=== PATIENT | female | born 1945 | race Caucasian/White ===

== ENCOUNTER 2016-12-27 17:00 | Inpatient (IN) | payer MEDICARE, BC ==
[~2016-12-27] VITALS: Ht 170.2 cm; Wt 79.2 kg
--- NOTE | ~2016-12-27 | DS ---
PATIENT'S NAME: PATRICIA CARBONE [facility] AGE: 71 Y [address] ROOM: [address] [address] LOCATION: [facility] [place] ADMIT DATE: 12/27/2016 Discharge Summary DISCHARGE DATE: 01/09/2017 FAMILY PHYSICIAN: Carmine Luna MD ATTENDING PHYSICIAN: Lucy Monson PRIMARY DIAGNOSES: 1. Anemia, acute on chronic lower gastrointestinal blood loss. 2. Superior mesenteric vein thrombosis. 3. Iron deficiency. 4. Stage IV colon cancer with liver metastases. 5. Essential hypertension. 6. Gastroesophageal reflux disease. 7. Osteoarthritis, generalized. 8. Moderate protein-calorie malnutrition. 9. Seasonal allergies. OPERATIONS OR PROCEDURES: Port-A-Cath was performed on 12/31/[address] Carlin without any complications. CT scan abdomen and pelvis was performed on 01/02/2017 demonstrating SMV thrombosis, neoplastic lesion at the cecum, multiple liver metastases, and cholelithiasis. CT-guided liver biopsy was performed on 01/02/2017 without complications. HISTORY OF PRESENTING ILLNESS AND REASON FOR ADMISSION: Please refer to the H and P dictated on 12/27/2016. HOSPITAL COURSE: The patient was admitted to the hospital as noted above with a presumptive diagnosis of severe anemia. This was felt to be secondary to acute on chronic lower GI blood loss. She had been noted to have significant iron deficiency. She received PRBC transfusion and was subsequently started on iron replacement therapy. Oncology was consulted. CT scan demonstrated the presence of a large cecal mass. Also, incidentally noted is superior mesenteric vein thrombosis and liver metastases. She was recommended to undergo CT-guided liver biopsy, and this was carried out on 01/02/2017 without any complications. Pathology demonstrated adenocarcinoma and necrotic debris. Colonoscopy had been performed on 12/28/2016, and visual endoscopic inspection was strongly suspicious for malignancy; however, biopsy results demonstrated reactive endothelial atypia. Because of the presence of the SMV thrombosis, she was heparinized. She tolerated that well. There was some lingering concern for continued lower GI bleeding. Her hemoglobin was monitored, and although she had some short-term variability and excursions of her hemoglobin down to 7.9, it was relatively PATIENT'S NAME: PATRICIA CARBONE [facility] AGE: 71 Y [address] ROOM: [address] [place], [place] [address] LOCATION: [facility] [place] ADMIT DATE: 12/27/2016 Discharge Summary DISCHARGE DATE: 01/09/2017 FAMILY PHYSICIAN: Carmine Luna MD ATTENDING PHYSICIAN: Lucy Monson stable over the long-term. She did not receive any additional PRBC transfusions. She remained hemodynamically stable. Oncology recommended initiation of chemotherapy with FOLFIRI. This was initiated on 01/07/2017. Care management did look for mcfp placement. Because of the patient's good functional status, it was felt she would not qualify for skilled care, and ultimately, it was decided that she would be safe to go home with Home Health and outpatient Home Health followup. By the end of the day on 01/09/2017, she was felt to be ready for discharge. DISCHARGE INSTRUCTIONS: DIET: Regular as tolerated. ACTIVITY: As tolerated. She will have Home Health with physical therapy, occupational therapy at home. MEDICATIONS: 1. Lovenox 80 mg subcu b.i.d. 2. 5-FU per Oncology. 3. Colace 100 mg p.o. t.i.d. 4. Zantac 150 mg p.o. q.h.s. 5. Iron 325 mg p.o. t.i.d. with meals. 6. Aloxi per Oncology. 7. Acetaminophen 650 mg p.o. q.6 hours p.r.n. pain or fever. 8. Prevacid 30 mg p.o. q.a.m. 9. Saline nasal spray 1 spray each nostril daily. FOLLOWUP: She will follow up with Dr. Luna in [place] in 3 to 5 days. She will follow up with Dr. Frost, oncologist, in 1 week. She will have Home Health, physical therapy, and occupational therapy at home. She was recommended to have a CBC on Saturday01/11/2017, to be followed by Dr. Luna. CONDITION ON DISCHARGE: Fair. Total time spent on discharge process 45 minutes. MOOK PORRAS MD PATIENT'S NAME: PATRICIA CARBONE [facility] AGE: 71 Y [address] ROOM: [address] [address] LOCATION: [facility] [place] ADMIT DATE: 12/27/2016 Discharge Summary DISCHARGE DATE: 01/09/2017 FAMILY PHYSICIAN: Carmine Luna MD ATTENDING PHYSICIAN: Lucy Monson /[id number] d: 01/10/17 0300 t: 01/12/17 0833, DISCHARGE SUMMARY
--- NOTE | ~2016-12-27 | CON ---
PATIENT'S NAME: PATRICIA CARBONE [facility] AGE: 71 Y [address] ROOM: [address] [place], [place] [address] LOCATION: [facility] [place] ADMIT DATE: 12/27/2016 Consultation DISCHARGE DATE: FAMILY PHYSICIAN: Carmine Luna MD ATTENDING PHYSICIAN: RAHUL MONSON REFERRING PROVIDER: Dr. Frost LOCATION:[place] [address] Date: 01/02/2017 This is a palliative care referral for patient and family support and goals of care. HISTORY OF PRESENT ILLNESS: This 71-year-old female was admitted on 12/27/2016 with severe anemia and progressive weakness. The patient had been seen by Dr. Luna in [place] for her anemia, increasing fatigue, and shortness of breath. She had an episode of severe nausea and abdominal pain with cramping at night lasting for 8 days with a decreased appetite. She had lost 15 to 20 pounds. She had developed constipation. Normal bowel movement was one per day. Bowel movements decreased down to 2 to 3 times a week, and she started to have episodes of hematochezia. She had a CT scan done of the abdomen and pelvis and revealed the distended cecum with thick-walled hypodensity in terminal ileum thickness, and a cecal mass could not be excluded. There were renal cysts which appeared to be simple cysts, simple liver cyst, and multiple hypodense lesions in the liver, the largest measuring 8.9 cm, and cholelithiasis was present. There was a segmental thrombosed mesenteric vein. She was then transferred to [facility]. Dr. Monson assumed cares and consulted Dr. Delgadillo who performed a colonoscopy which detected a large, firm, infiltrative, nodular, submucosal and ulcerated tumor involving 75% to 90% of the circumferential of the ascending colon. The patient currently complains of right mid abdominal pain, rates it 6/10. Denies any shortness of breath at rest. Does complain of fatigue and shortness of breath with activity. Was up to shower and tolerated it well. Decreased appetite. No dizziness. Last bowel movement was on 01/01. 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 PAST SURGICAL HISTORY: In 1950, appendectomy; 1951, tonsillectomy and adenoidectomy; 1974, excision PATIENT'S NAME: PATRICIA CARBONE [facility] AGE: 71 Y [address] ROOM: [place] [address] LOCATION: [facility] [place] ADMIT DATE: 12/27/2016 Consultation DISCHARGE DATE: FAMILY PHYSICIAN: Carmine Luna MD ATTENDING PHYSICIAN: RAHUL MONSON of adenoma of left parotid gland; 1991, excision of benign mole on her left lip; 2001, right breast cystic excision; 2006, left eye central vein occlusion; 2013, right cataract extraction. HOME MEDICATIONS: 1. Ferrous sulfate 325 mg p.o. b.i.d. 2. Ibuprofen 200 mg p.o. p.r.n. 3. Lansoprazole 30 mg p.o. every a.m. 4. Ranitidine 150 mg p.o. at bedtime. 5. Nasal saline spray p.r.n. ALLERGIES: NO KNOWN ALLERGIES. FAMILY HISTORY: Mother had uterine cancer. Father had heart problems. She has 2 brothers; one has Parkinson's, and younger brother has prostate cancer. REVIEW OF SYSTEMS: A complete review of systems is done and is negative except as mentioned in the HPI. PHYSICAL EXAMINATION: GENERAL: This is a 71-year-old female in no acute distress. Alert and oriented. VITAL SIGNS: Temperature 100.3, pulse 72, respirations 16, blood pressure 143/74, and O2 saturation is 93%. She is 5 feet 7 inches and weighs 166 pounds with a BMI of 26.1. SKIN: Warm and dry. Color very pale. HEENT: Head is normocephalic and atraumatic. Sclerae are nonicteric. Conjunctivae are pale, pink. Mouth is pink and moist without exudate. LYMPHATIC: No cervical adenopathy or thyromegaly. RESPIRATORY: Clear to auscultation. Breath sounds even and regular. CARDIAC: S1 and S2, without murmurs or bruits. ABDOMEN: Soft, rounded, and nondistended. Tender in right mid quadrant with palpation. No hepatosplenomegaly. NEUROLOGICAL: Grossly intact. MUSCULOSKELETAL: Appropriate range of motion. No deformities. EXTREMITIES: No cyanosis or deformities. Palliative Performance Scale is 50%, mainly sitting and lying, unable to do any extensive work. Some assistance needed with cares. Intake is reduced, and conscious level is full. IMPRESSION: PATIENT'S NAME: PATRICIA CARBONE [facility] AGE: 71 Y [address] ROOM: [place] [address] LOCATION: [facility] [place] ADMIT DATE: 12/27/2016 Consultation DISCHARGE DATE: FAMILY PHYSICIAN: Carmine Luna MD ATTENDING PHYSICIAN: RAHUL MONSON 1. Abdominal pain. 2. Weakness. 3. Fatigue. 4. Dyspnea. 5. Anxiety. PLAN: 1. Met with the patient. Discussed recent diagnosis of probable colon cancer with metastasis to the liver. The patient has a fairly good understanding of current condition. Does express anxiety and worry over condition and treatment. 2. Goals of care:. a. The patient just wants to stop the cancer from spreading. b. Open to chemotherapy. Waiting on biopsy results to start chemotherapy. c. Long-term goals: Hopes to get back home. 3. Discussed support systems. Does have 2 brothers. One brother lives in [place] and does have a nephew who helps her a lot. Grew up in [place] and has many family and friends who can help. 4. Code status and advance directive: The patient is a full code. Does not have an advance directive. Discussion of advance directive for health care and a durable power of district attorney. Gave information booklet on advance directives and a brochure on [employer] Aging to get a formal advance directive. Answered all questions and concerns. Emotional support given for anxiety. Recommendations: 1. pain, the patient does not take a lot of pain medication. Does have Tylenol and Percocet ordered. The patient opted to take Tylenol at this time. We will follow up to see if the pain is being controlled and assist with code status/advanced directives questions. Total time was 65 minutes, with 55 minutes for counseling, coordination of care, education on disease process, goals of care, and advance directive. Thank you Dr. Frost for allowing us to assist with this patient and family. BRENDA GRIJALVA NP FOR MD JAQUELINE JAMESON/fidel /[id number] cc: Dr Luna [facility] d: 01/02/17 1418 t: 01/11/17 1712, CONSULTATION REPORT
--- NOTE | ~2016-12-27 | HP ---
PATIENT'S NAME: PATRICIA CARBONE [facility] AGE: 71 Y [address] ROOM: [address] [place], [place] [address] LOCATION: [facility] ADMIT DATE: 12/27/2016 History & Physical DISCHARGE DATE: FAMILY PHYSICIAN: Carmine Luna MD ATTENDING PHYSICIAN: RAHUL DAVIS DATE OF SERVICE: 12/28/2016 CHIEF COMPLAINT: Ascending colon mass with metastatic disease to the liver. HISTORY OF PRESENT ILLNESS: The patient is a 71-year-old female who presented to her primary care provider a couple of days ago with an 8-day history of "cramping" abdominal pain. The pain seemed to be more across her lower abdomen but did not really localize. The cramping has actually gotten better the last day or two. She also has had a decreased appetite for the past few weeks. No nausea or vomiting, but just finds that food does not sound good. She does report a 15 to 20 pounds weight loss over the past three months. She has had significant fatigue for a year or more. She has never had a previous colonoscopy. Her primary care provider obtained lab work, which showed a significant anemia with a hemoglobin of 6.8. The patient does not report any visible blood in her stools but does state that she had one black stool earlier in the week. No red blood or clots. She has received 2 units of blood since then and her hemoglobin this morning was 7.7. She also had a CT scan done at the [facility]. This shows a thickened cecum concerning for possible mass but also showed extensive liver tumors consistent with metastatic disease. She also was noted to have a large simple cyst in the liver, small amount of ascites was noted. The oral contrast was noted to be in the colon and certainly no evidence of obstruction by CAT scan criteria. The patient tolerated a bowel prep here without vomiting. She then had a colonoscopy this morning that revealed a large near obstructing ascending colon mass. Biopsies were obtained and are now pending. It is noted that she had quite considerable luminal narrowing but no blood within the colon and no other obvious abnormalities. The patient is now awake and alert. She denies any significant pain. She is passing gas without difficulty. Dr. Wilcox saw her and wanted me to discuss the options of palliative colon resection versus upfront chemotherapy. PAST MEDICAL HISTORY: Hypertension. 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 PATIENT'S NAME: PATRICIA CARBONE [facility] AGE: 71 Y [address] ROOM: [address] [place], [place] [address] LOCATION: [facility] ADMIT DATE: 12/27/2016 History & Physical DISCHARGE DATE: FAMILY PHYSICIAN: Carmine Luna MD ATTENDING PHYSICIAN: RAHUL DAVIS ALLERGIES: NO KNOWN DRUG ALLERGIES. MEDICATIONS: Include amlodipine, aspirin, iron, Advil, Prevacid, Lutein, metoprolol, Centrum Silver, Zantac, and valsartan hydrochlorothiazide. SOCIAL HISTORY: The patient has never been and without children. She lives alone. She does have a brother whom she communicates with regularly. She has been retired. She has never been a smoker. She denies alcohol use. FAMILY HISTORY: Positive for Parkinson disease in a brother. There is also a family history of prostate cancer. Her mother had uterine cancer. Her father had coronary artery disease. REVIEW OF SYSTEMS: Primarily consists of the fatigue. She did have some fevers at home where she felt chilled and hot. She also has been thirsty recently. Everything else was discussed in the history of present illness. PHYSICAL EXAMINATION: GENERAL: The patient is a healthy, well-nourished elderly female. She appears appropriate for her stated age. Her current temperature is 99.6, blood pressure 119/59, pulse 89, respirations 16, sats are 92% on room air. HEENT: Normocephalic, atraumatic. Pupils are equal. External ears, nose, and eyelids are unremarkable. Oropharynx is clear without lesions or exudate. NECK: Trachea is midline. There is no masses or adenopathy. Breathing is nonlabored. LUNGS: Clear to auscultation bilaterally without rales, rhonchi, or wheezing. HEART: Regular rate and rhythm. ABDOMEN: Soft. It is not visibly distended. She has normoactive bowel sounds. She has a scar in the right lower quadrant. She has some mild tenderness in the right lower quadrant and possibly some palpable fullness in this area. I would not say distinct mass, no obvious hernias. EXTREMITIES: No peripheral edema. No cyanosis or clubbing. No obvious deformities. ASSESSMENT: A 71-year-old female with chronic anemia secondary to a large cecal mass and extensive metastatic disease to the liver. We would assume this as an adenocarcinoma, though that has not been confirmed by biopsy. I do not feel like she is acutely bleeding and feel like this has been more of a chronic issue. Her CT scan did not show any obstructive symptoms but the cramping PATIENT'S NAME: PATRICIA CARBONE [facility] AGE: 71 Y [address] ROOM: [address] [address] LOCATION: [facility] ADMIT DATE: 12/27/2016 History & Physical DISCHARGE DATE: FAMILY PHYSICIAN: Carmine Luna MD ATTENDING PHYSICIAN: RAHUL DAVIS abdominal pain may indicate some partial obstruction. Certainly, the colonoscopy showed considerable luminal narrowing. The small amount of ascites though was also concerning that this is either from carcinomatosis or liver lesions. PLAN: Unfortunately the patient's prognosis is quite guarded at this point and her tumor burden is high. The pathology and CEA are pending. She is also undergoing a workup for her fevers. The question that we are faced with is whether to consider a palliative colon resection to try to reduce the risk of obstruction, bleeding, or perforation, but would delay the onset of chemotherapy. This would be assuming that we even find that the tumor is resectable. The other option would be to start chemotherapy upfront trying to shrink her tumor burden and hoping that the primary would shrink as well. Obviously, this has risks to it also. At this point, with the amount of tumor burden on her liver as well as the CT scan not showing any obstructive issues and a right colon lesion, I would lean towards starting chemotherapy and trying to avoid surgical resection. I did give patient both options though and discussed this at length. She is going to let all of this sink in as she has unfortunately been told a lot of bad news in the last few days. I will recheck with her in the morning and see if she has any other questions. MD JOSEFA BENITEZ/fidel /[id number] CC: Carmine Luna MD D: [id number] T: [id number] HISTORY & PHYSICAL
--- NOTE | ~2016-12-27 | OR ---
PATIENT'S NAME: PATRICIA CARBONE [facility] AGE: 71 Y [address] ROOM: [address] [address] LOCATION: [facility] [place] ADMIT DATE: 12/27/2016 OR/Procedure Report DISCHARGE DATE: FAMILY PHYSICIAN: Carmine Luna MD ATTENDING PHYSICIAN: RAHUL DAVIS SURGEON: Munir Cotter MD SOCIOLOGY FACULTY MEMBER: DATE OF PROCEDURE: 12/31/2016 PREOPERATIVE DIAGNOSES: 1. Metastatic colon cancer. 2. The patient to have chemotherapy. POSTOPERATIVE DIAGNOSES: 1. Metastatic colon cancer. 2. The patient to have chemotherapy. PROCEDURE: Insertion of Port-A-Cath. ANESTHESIA: MAC and local. INDICATIONS: The patient is a 71-year-old female, who has metastatic colon cancer and the plan is for her to have a chemotherapy. Risks and benefits were discussed with the patient and consent was obtained. PROCEDURE IN DETAIL: After anesthesia, the patient was prepped and draped in usual sterile fashion. The right subclavian was accessed but the return appeared to be arterial. It was removed and pressure was applied, and then repositioned the patient and once again, left subclavian was accessed and arterial blood was applied. The needle was removed and the pressure was applied. I then repositioned the patient a bit more Trendelenburg and once again accessed the left subclavian area and skin arterial blood was obtained. Again, needle was removed and pressure was applied. I then once again repositioned and changed the angle of my needlestick and once again accessed via the left subclavian and that once again arterial blood was supplied. I therefore abandoned the left side and move to the right side. Pressure was applied to that area and on examination no hematoma was noted via the left subclavian area. I then went to the right side again. We prepped and draped once again and changed our gloves, went to the right side but again accessed it this time via the right subclavian area. A venous return was accessed on the first stick. A guidewire was placed, and the catheter was placed in the usual fashion. The fluoroscopy confirmed the placement of the catheter. The Port-A-Cath was secured onto the catheter and placed again a subcutaneous pocket. Once the catheter was in place and heparinized saline through needle, good blood flow was returned and was able to flush it easily as well. We PATIENT'S NAME: PATRICIA CARBONE [facility] AGE: 71 Y [address] ROOM: [place] [address] LOCATION: [facility] [place] ADMIT DATE: 12/27/2016 OR/Procedure Report DISCHARGE DATE: FAMILY PHYSICIAN: Carmine Luna MD ATTENDING PHYSICIAN: RAHUL DAVIS therefore closed the subcutaneous pocket using 3-0 Vicryl and the port was secured in place using 2-0 Vicryl suture. The subcutaneous incisions were then closed in subcu fashion using 4-0 Monocryl sutures. The needle was placed into the port and secured in place. Once again, good flow of blood and fluid were noted. All incisions were then dressed with sterile gauze At the end of this procedure, sponge and needle counts were correct, and blood loss was minimal. The patient was transferred to the PACU in stable condition. MUNIR COTTER MD CC/fidel /[id number] d: 12/31/161922 t: 02/04/17 1504, OPERATIVE SUMMARY
--- NOTE | ~2016-12-27 | HP ---
PATIENT'S NAME: PATRICIA CARBONE [facility] AGE: 71 Y [address] ROOM: [address] [address] LOCATION: [facility] [place] ADMIT DATE: 12/27/2016 History & Physical DISCHARGE DATE: FAMILY PHYSICIAN: Carmine Luna MD ATTENDING PHYSICIAN: RAHUL DAVIS DATE OF SERVICE: 12/27/2016 CHIEF COMPLAINT: Severe anemia with progressive weakness. HISTORY OF PRESENT ILLNESS: Ms. Carbone is a very sweet and quiet 71-year-old female, who has been having progressive symptoms of fatigue over at least a year. She was seen by her PCP and had lab work for the first time in 3 years and noted to have severe anemia, which is worsening over the past week. She is becoming increasingly weak, and her PCP, Dr. Loo, requested that Dr. Monaco, local oncologist, refer her for admission to our hospital. She arrived by private vehicle earlier today. The patient reports that on contemplation, she believes her symptoms have been developing probably over the past 5 years but then culminated in 2015. At that time, her fatigue was severe. She was easily worn out and needed to sit and catch her breath. She developed increasingly frequent fatigue, and 2 weeks ago, she developed an episode of severe nausea, pain with cramping, which lasted a day and night for 8 days, associated with loss of appetite, desire to sleep. She saw Dr. Loo in [place]. On his exam, he describes a palpable liver mass. CT showed multiple liver hypodense irregular masses. The largest in the right pole posteriorly measuring 8.9 cm. Her hemoglobin was above 7 earlier in the week and now 6.8. A complete metabolic panel on showed potassium of 3.1. She was a direct admission here for further evaluation and management of these symptoms and radiographic findings. She has been started on a bowel prep for colonoscopy in the morning. Dr. Delgadillo has been consulted. PAST MEDICAL HISTORY: Hypertension with white coat syndrome. PAST SURGICAL HISTORY: 1. 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 2. Right cataract resection. PATIENT'S NAME: PATRICIA CARBONE [facility] AGE: 71 Y [address] ROOM: [id number] [place], [place] [address] LOCATION: [facility] ADMIT DATE: 12/27/2016 History & Physical DISCHARGE DATE: FAMILY PHYSICIAN: Carmine Luna MD ATTENDING PHYSICIAN: RAHUL DAVIS ALLERGIES: NO KNOWN DRUG ALLERGIES. MEDICATIONS: Most of these she has stopped taking since August because of her symptoms of fatigue. 1. Amlodipine 5 mg p.o. daily. 2. Aspirin 81 mg p.o. daily. 3. Ferrous sulfate 1 tab p.o. b.i.d. (started recently for her anemia). 4. Advil 1 tab p.o. p.r.n. pain. 5. Prevacid 30 mg p.o. every morning. 6. Lutein vitamin p.o. daily. 7. Metoprolol 25 mg p.o. daily. 8. Centrum Silver 1 p.o. daily. 9. Zantac 150 mg at h.s. 10. Sodium chloride spray. 11. Valsartan and hydrochlorothiazide 324/12.5. SOCIAL HISTORY: The patient has never , without children. She lives alone. 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 She is a nonsmoker, nondrinker. FAMILY HISTORY: Positive for 2 brothers who are alive, one is 65 and the other who is aged younger. She is unsure of which the older has Parkinson's, younger had prostate cancer. Her mother at age 75 of uterine cancer, and her father at age 77 of an HI. REVIEW OF SYSTEMS: GENERAL: She has not been feeling well at all over the past year but more specifically in August and much worse in November. At first in August, she thought that she was feeling better after she stopped her blood pressure medications. She has lost 15 to 20 pounds over the last 2 months with decreased appetite and significant fatigue. As of the week of 12/14/2016, she developed fever without actually measuring her temperature at home, and she was having chills with these episodes. In the doctor's office, her temperature ranged from 99 to 101.4. HEENT: She denies headaches, blurred vision, dizziness. There has been no sore throat, dysphagia, or odynophagia. She has had a cataract. She wears glasses and does have chronic sinus problems. PULMONARY: She is short of breath. She thinks this is related to her weariness, but she denies orthopnea, cough, sputum production, wheezing, or chest pain. PATIENT'S NAME: PATRICIA CARBONE [facility] AGE: 71 Y [address] ROOM: [place] [address] LOCATION: [facility] ADMIT DATE: 12/27/2016 History & Physical DISCHARGE DATE: FAMILY PHYSICIAN: Carmine Luna MD ATTENDING PHYSICIAN: RAHUL DAVIS CARDIOVASCULAR: She has no history of coronary artery disease, but she has had palpitations. She denies any edema. GASTROINTESTINAL: She began having indigestion especially at night in August, for which she took Pepto-Bismol until she had a very painful attacks, and she got [id number] PPI. She does also endorse intermittent constipation recently. Her last BM was today. She has had increased gas and pressure, especially after meals since September, which she was treating with 7 Up. She denies vomiting, diarrhea, hematemesis, hematochezia. She has had intermittent melena, which is something she did not know the significance of until she had a large black bowel movement in November. GENITOURINARY: She denies hematuria, polyuria, incontinence, frequent UTIs. NEUROLOGIC: She denies weakness, numbness, confusion, dysarthria, syncope, near syncope, falls, loss of balance, and memory loss. HEMATOLOGIC: Severe anemia of recent onset. She thinks she has not had her blood work done in 3 years, but when she did, she had a hemoglobin between 12 and 14, and results were as reported in the HPI. She has no excessive bruising and no history of DVTs or PEs. MUSCULOSKELETAL: She has osteoarthritis in her knees. She gets swelling with severe exercise. She denies osteoporosis. DERMATOLOGIC/ENDOCRINE/PSYCHIATRIC: She denies dermatologic problems, endocrine problems, and psychiatric problems. The remainder of a 12-point review of systems is negative. PHYSICAL EXAMINATION: VITAL SIGNS: Temperature is 99.9, pulse 85, respirations 12, blood pressure 117/63, O2 saturation on room air is 96%. GENERAL: This is a well-developed, well-nourished, pale, female, in no acute distress. HEENT: Normocephalic, atraumatic. Pupils are equal and round. Sclerae are anicteric. Palpebral conjunctivae are very pale without exudate. The oropharynx is clear. The soft palate is mildly erythematous. NECK: Supple with shotty anterior cervical lymphadenopathy. There is no supraclavicular lymphadenopathy. LUNGS: Clear to auscultation and percussion bilaterally. There is no CVA or vertebral tenderness. CARDIOVASCULAR: Regular rate and rhythm. No murmurs, rubs, or gallops. ABDOMEN: Round, soft, distended, very full, especially in the right lower quadrant where there is a fairly large mass palpable and tender. The liver edge is not remarkable to me. EXTREMITIES: No cyanosis, clubbing, or edema. Dorsalis pedis pulses are 2+ and equal bilaterally. Strength is 5/5 and equal bilaterally. Able to grasp in dorsiflexion and plantar flexion. NEUROLOGIC: Cranial nerves 2 through 12 are grossly intact. Speech is normal. She is alert and oriented to person, place, and time. PATIENT'S NAME: PATRICIA CARBONE [facility] AGE: 71 Y [address] ROOM: [place] [address] LOCATION: [facility] ADMIT DATE: 12/27/2016 History & Physical DISCHARGE DATE: FAMILY PHYSICIAN: Carmine Luna MD ATTENDING PHYSICIAN: RAHUL DAVIS LABORATORY DATA: From the outlying facility. CBC from today showed white blood cell count 11.9, hemoglobin 6.8, hematocrit 24.1, MCV 64, platelet count 687, neutrophils 80.6, lymphocytes 13.5, monos 5.4, eos 0.2. Her INR was 1.1. Chemistry panel was obtained on 12/24/2016 shows sodium 141, potassium 3.1, chloride 98, CO2 of 28, anion gap was normal. AST 49, ALT 56, total bilirubin 0.8, alkaline phosphatase 208. Total protein 6.2, albumin 3.1, globulin 3.1, creatinine 0.6, BUN 10, glucose 112, calcium 95 and normal EGFR. White blood cell count on that day was actually 12.8 and hemoglobin 7.2. Sedimentation rate done on 12/24/2016 was 62. RADIOGRAPHIC STUDY: CT scan of the abdomen and pelvis, summary of the findings showed: 1. Liver metastasis, suspected colon cancer, possibly from cecum. 2. Indeterminate right inferior pole renal cortical nodule, thought to represent either hemorrhagic or proteinaceous cyst. 3. Cholelithiasis. 4. Segmentally thrombosed superior mesenteric vein. ASSESSMENT AND PLAN: 1. Severe anemia. She has been typed and crossed impending transfusion of 2 units of packed red blood cells this evening. 2. Possible colon cancer with large liver lesions indicating liver metastasis. I have consulted Dr. Delgadillo and spoke with him directly myself this evening. We started colon prep, and she will have a colonoscopy in the morning. 3. I have written the orders to consult Dr. Frost in the morning for further oncologic assessment. In addition, we may need a general surgical consult, however, with significant liver metastasis, depending on the staging, surgery may not be indicated at this time, and we would ask for direction from Dr. Frost in that regard. 4. Hypokalemia. While she is undergoing prep, we will start IV fluid with potassium supplementation and recheck her electrolytes in the morning. 5. Elevated white count, although this could be trivial purely to her cancers, unknown to have bacteremia, colon cancer, we will check urine, urine culture, and blood cultures at this time. 6. Disposition. Once we completed the initial diagnostic evaluation, she should be allowed to be discharged to home in the near future. RAHUL DAVIS MD PATIENT'S NAME: PATRICIA CARBONE [facility] AGE: 71 Y [address] ROOM: [place] [address] LOCATION: [facility] ADMIT DATE: 12/27/2016 History & Physical DISCHARGE DATE: FAMILY PHYSICIAN: Carmine Luna MD ATTENDING PHYSICIAN: RAHUL DAVIS LM/fidel /[id number] D: [id number] T: [id number] HISTORY & PHYSICAL
--- NOTE | ~2016-12-27 | CON ---
PATIENT'S NAME: AVIVA CARBONE [facility] AGE: 71 Y [address] ROOM: [id number] [place], [place] [address] [place] [facility] [place]MIT DATE: 12/27/2016 Consultation DISCHARGE DATE: FAMILY PHYSICIAN: Carmine Luna MD ATTENDING PHYSICIAN: RAHUL MONSON DATE OF CONSULTATION: 12/28/2016 REFERRING PHYSICIAN: Munir COTTER MD HISTORY OF PRESENT ILLNESS: Aviva Carbone is a 71-year-old woman with presumed adenocarcinoma of the ascending colon metastatic to the liver. The history of the present illness is obtained from visiting with the patient, who is a halting and discursive, but ultimately good historian; her brother; Dr. Monson; and review of the records forwarded by our colleagues in [place], [place] and the [facility] chart. The patient has developed considerable symptoms since September of 2016. Her chronic fatigue has progressed exponentially. She has developed anorexia and has lost 15 to 20 pounds. She has developed constipation. Normally, she had one bowel movement a day, and for the last two months, she has had one bowel movement every 2 to 3 days and has sometimes required a stool softener. One week ago, she had an episode of hematochezia. The patient developed a axizt-nj-oxv day episode of constant right-sided abdominal pain, cramping, and then stable, which sometimes interfered with her sleep or activity and was associated with bloating. She has experienced no vomiting. Since September 2016, the patient has treated herself for heartburn. She has taken Pepto-Bismol and set the head of her bed up. She developed a fever of 101.4 degrees on one occasion. She feels cold, but has had no rigors. Her long-term chronic night sweats have persisted. She has experienced pica for ice, and her lips have peeled. She has developed palpitations over the last 2 months. The patient makes the point that a month ago, she could go on 10-minute walks with her dog daily, but was limited by fatigue if she tried to walk more than two blocks, and also had difficulty walking up stairs. She acknowledges that anywhere from 2-3 or even 5 years, she has steadily developed fatigue, although these episodes would wax and wane. On 12/25/2015, the patient reported to her physician, Dr. Carmine Luna, in [place], [place]. The patient reports Dr. Luna palpated an abdominal mass. The CBC with differential revealed the white count was 12,800. The patient had 85% neutrophils and 10% lymphocytes. The hemoglobin was 7.2 g/dL, the MCV was 63, and the platelets were 678,000. The general chemical profile PATIENT'S NAME: AVIVA CARBONE [facility] AGE: 71 Y [address] ROOM: [id number] [place], [place] [address] [place] [facility] [place]MIT DATE: 12/27/2016 Consultation DISCHARGE DATE: FAMILY PHYSICIAN: Carmine Luna MD ATTENDING PHYSICIAN: RAHUL MONSON revealed the potassium was 3.1 mmol/L, the AST was slightly elevated at 49 U/L, the alkaline phosphatase was 208 U/L with the upper limits of normal being 126, and the albumin was 3.1 g/dL. The eGFR was 105 mL/m, and otherwise the liver function tests were normal. The TSH was 1.16 U/international units/mL, and the free T4 was 1.65 ng/dL, which was slightly elevated. The BNP was 256 pg/mL. The ESR was 62 mm/hr. A CAT scan of the abdomen and pelvis revealed a distended cecum with a thick-walled hypodensity and terminal ileum thickening. A cecal mass could not be excluded. There were renal cysts, which appeared to be simple cysts. There were simple liver cysts. There were multiple hypodense lesions in the liver, the largest measuring 8.9 cm. Cholelithiasis was present. There was a segmentally thrombosed mesenteric vein. The INR was 1.1. The patient was transferred to [facility]. Dr. Monson assumed the patient's care and consulted Dr. Delgadillo. On 12/28/2016, Dr. Delgadillo performed a colonoscopy. Dr. Delgadillo detected a large, firm, infiltrative, nodular, submucosal, and ulcerated tumor involving 75% to 99% of the circumference of the ascending colon. There were no other abnormalities on colonoscopy. Dr. Delgadillo took four forceps biopsies from the ascending colon tumor. The patient is now seen in consultation. The patient has no personal or family history of colonic polyposis or colon cancer. The patient has no history of inflammatory bowel disease, and has never used tobacco. The patient has never undergone screening colonoscopy or flexible sigmoidoscopy, and has never submitted stools for Hemoccult testing. ACTIVE MEDICAL PROBLEMS, CHRONIC AND DIAGNOSED: 1. Essential arterial hypertension noted in 1996 when the patient developed palpitations. This has not been labile or associated with any end-organ damage. 2. Cholelithiasis noted incidentally on CAT scan in 2016. 3. Migraine headaches, resolved following menopause. 4. 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 5. Allergic rhinitis in the summer months treated with normal saline. 6. Osteoarthritis in the knees. 7. Renal cysts - simple. 8. Liver cyst. ACUTE MEDICAL ILLNESSES (RESOLVED), PAST SURGERIES, AND INJURIES: 1. In 1949 - rheumatic fever with no sequela. 2. In 1950 - appendectomy. 3. In 1951 - tonsillectomy and adenoidectomy. 4. 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 ROOM: [place] [address] [place] [facility] [place]MIT DATE: 12/27/2016 Consultation DISCHARGE DATE: FAMILY PHYSICIAN: Carmine Luna MD ATTENDING PHYSICIAN: RAHUL MONSON parotid gland. 5. In 1991 - excision of a benign mole from the left lip. 6. In 2001 - right breast cyst excision. 7. In 2006, left eye central vein occlusion. 8. In 2013, right cataract extraction. MEDICATIONS: 1. Ferrous sulfate 325 mg p.o. b.i.d. 2. Ibuprofen 200 mg p.o. p.r.n. 3. Lansoprazole 30 mg p.o. q.a.m. 4. Ranitidine 150 mg p.o. at bedtime. 5. Nasal saline spray p.r.n. ADVERSE REACTIONS TO MEDICATIONS, TRANSFUSIONS, AND ALLERGIES: 1. No known allergies. 2. The patient has received 2 units of packed red blood cells during this hospitalization, and another unit has been ordered. TOBACCO: None. ALCOHOL: None. CAFFEINE: Ten cups of coffee a day. IMMUNIZATIONS: Positive flu, the patient declines the recommendations for a pneumococcal vaccine. Negative tetanus toxoid booster and negative varicella zoster virus vaccine. FAMILY HISTORY: The patient's mother of uterine cancer in her 70s. SOCIAL HISTORY: The patient was born and raised [place], [place]. She worked several jobs, but then stuck at the [employer] for the last thirty years of her career before she retired in 2010. The patient has never , and is not a temple goer. She has a brother from [place], who accompanies her. REVIEW OF SYMPTOMS: Negative other than those noted in the history of the present illness. The patient does acknowledge positive blindness in the left eye, which is not PATIENT'S NAME: AVIVA CARBONE [facility] AGE: 71 Y [address] ROOM: [place] [address] [place] [facility] ADMIT DATE: 12/27/2016 Consultation DISCHARGE DATE: FAMILY PHYSICIAN: Carmine Luna MD ATTENDING PHYSICIAN: RAHUL OMNSON. PHYSICAL EXAMINATION: VITAL SIGNS: Pulse was 76 and regular, blood pressure was 130/65, respiratory rate was 16, temperature was 99.6, and T-max was 100 degrees. Height is 67 inches, weight is 75.7 kg (167 pounds), and BMI is 26.1 kg/m2. GENERAL: Well developed, slightly overweight, 71-year-old female, in no acute distress. HEENT: Unremarkable. Lymph nodes are nonpalpable. NECK: Without JVD or carotid bruit. SKIN: Multiple garduno angiomas, nevi, and moles. CHEST: Clear. CARDIOVASCULAR: Regular rate and rhythm. No murmurs, bruits, or adventitious sounds. BREASTS: Not examined (her brother was present). ABDOMEN: Healed scar running from northwest to southeast in the right lower quadrant. The patient has a palpable mass with deep palpation just lateral to the umbilicus. GENITALIA AND RECTUM: Not examined. EXTREMITIES: Without peripheral edema. Pulses are 2+ throughout. NEUROLOGICAL: The patient is alert and oriented, and moves all 4 extremities without difficulty. IMPRESSION AND PLAN: 1. Probable adenocarcinoma of the ascending colon metastatic to the liver leading to iron deficiency anemia, anorexia, weight loss, and abdominal cramping as well as low-grade fevers, possible sweats and pica for ice. 2. Our goals are palliative. 3. The question before the house - should a palliative resection of the primary be performed. The answer is not clear cut. If the primary was small and the metastases were rather large, then systemic therapy only should be recommended and considered. If the primary was large and the patient had minimal metastatic disease, then clearly surgical resection of the primary would be warranted. In this case, the patient has a large symptomatic primary, but also has large metastases. Palliative resection of the primary seems reasonable, but we can only wish we had a crystal ball. 4. Risk factors include the patient's age and her [place] descent. RECOMMENDATIONS: DIAGNOSTIC 1. Consult Dr. Guy. 2. CEA. PATIENT'S NAME: AVIVA CARBONE [facility] AGE: 71 Y [address] ROOM: [place] [address] [place] [facility] [place]MIT DATE: 12/27/2016 Consultation DISCHARGE DATE: FAMILY PHYSICIAN: Carmine Luna MD ATTENDING PHYSICIAN: RAHUL MONSON TREATMENT 1. Palliative resection of the primary? 2. Consider systemic therapy whatever is done with the primary. PATIENT EDUCATION 1. We made the point we suspect that she has the most common kind of colon cancer, adenocarcinoma. 2. Discussed her risk factors. 3. Acknowledged that the important question was whether surgery is warranted at this point. 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 Guy's input. MD PATRICIA NIELSEN/modl /[id number] CC: MD Elvin Vargas MD Lucinda Mundorf, MD d: 12/29/16 0205 t: 01/01/17 0931, CONSULTATION REPORT
[2016-12-27] MEDS ORDERED: PREVACID30 M1 PO (19:09)
[2016-12-27] MEDS ORDERED: ZANTAC (NON-FO150 MG PO (19:09)
[2016-12-27] MEDS ORDERED: VALSARTAN-HCTZ1 EAC2 PO (19:10)
[2016-12-27] MEDS ORDERED: NORVASC5 MG PO (19:11)
[2016-12-27] MEDS ORDERED: TOPROL XL25 MG PO (19:11)
[2016-12-27] MEDS ORDERED: BAYER CHILD81 MG PO (19:12)
[2016-12-27] MEDS ORDERED: LUTEIN20 MG PO (19:12)
[2016-12-27] MEDS ORDERED: CENTRUM SILVER1 TAB PO (19:12)
[2016-12-27] MEDS ORDERED: SALINE NASAL SP88 ML NOSE (19:13)
[2016-12-27] MEDS ORDERED: ADVIL200 MG PO (19:13)
[2016-12-28 09:11] LABS: BASOPHIL % 0.3 %; EOSINOPHIL % 0.1 %; HEMATOCRIT 25.5 % (33.0-46.0); IMMATURE GRANULOCYTE # 0.1 K/uL (0.0-0.3); IMMATURE GRANULOCYTE % 0.5 %; LYMPHOCYTE # 1.3 K/uL (0.8-4.0); LYMPHOCYTE % 14.1 %; MCH 20.1 pg (27.0-34.0); MCHC 30.2 gm/dL (32.0-36.5); MCV 66.4 fl (83.0-98.0); MONOCYTE # 0.5 K/uL (0.0-1.0); MONOCYTE % 5.5 %; MPV 8.9 fl (9.4-12.4); NEUTROPHIL # (ANC) 7.4 K/uL (1.8-7.8); NEUTROPHIL % 79.5 %; NRBC % 0 /100WBC (0-0.00); PLATELET COUNT 487 K/uL (150-450); RBC 3.84 M/uL (3.50-5.50); RDW-CV 22.8 % (11.9-14.6); WBC 9.3 K/uL (4.0-11.0)
[2016-12-28 09:13] LABS: HEMOGLOBIN 7.7 g/dL (10.0-15.0)
[2016-12-28 09:29] LABS: ANION GAP 11.4 (10.0-19.0); BLOOD UREA NITROGEN 8 mg/dL (6-24); CALCIUM 8.4 mg/dL (8.5-10.5); CHLORIDE 109 mMol/L (96-110); CO2 28 mMol/L (22-32); CREATININE 0.5 mg/dL (0.5-1.1); ESTIMATED GFR (MDRD EQUATION) > 60; POTASSIUM 3.4 mMol/L (3.7-5.1); SODIUM 145 mMol/L (135-145)
[2016-12-28 17:36] LABS: BILIRUBIN URINE NEGATIVE (NEGATIVE); BLOOD URINE NEGATIVE /UL (NEGATIVE); COLOR URINE STRAW (YELLOW); GLUCOSE URINE NEGATIVE (NEGATIVE); KETONE URINE 5 mg/dL (NEGATIVE); LEUKOCYTES URINE 500 /UL (NEGATIVE); NITRITE URINE NEGATIVE (NEGATIVE); PH URINE 6.5 (4.0-8.0); PROTEIN URINE 15 mg/dL (NEGATIVE); SPEC GRAVITY URINE 1.015 (1.003-1.035); TURBIDITY URINE CLEAR (CLEAR); UROBILINOGEN URINE NORMAL (NORMAL)
[2016-12-28 18:00] LABS: RBC URINE RARE #/HPF (NEGATIVE)
[2016-12-28 18:01] LABS: BACTERIA URINE MODERATE (NEGATIVE); MUCUS URINE 2+ (NEGATIVE)
[2016-12-29 05:14] LABS: BASOPHIL % 0.4 %; EOSINOPHIL % 0.3 %; HEMATOCRIT 25.8 % (33.0-46.0); IMMATURE GRANULOCYTE # 0.1 K/uL (0.0-0.3); IMMATURE GRANULOCYTE % 0.5 %; LYMPHOCYTE # 1.1 K/uL (0.8-4.0); LYMPHOCYTE % 10.7 %; MCH 20.3 pg (27.0-34.0); MCHC 29.8 gm/dL (32.0-36.5); MCV 67.9 fl (83.0-98.0); MONOCYTE # 0.6 K/uL (0.0-1.0); MONOCYTE % 5.9 %; NEUTROPHIL # (ANC) 8.7 K/uL (1.8-7.8); NEUTROPHIL % 82.2 %; NRBC % 0 /100WBC (0-0.00); PLATELET COUNT 438 K/uL (150-450); RDW-CV 23.1 % (11.9-14.6); WBC 10.6 K/uL (4.0-11.0)
[2016-12-29 05:15] LABS: HEMOGLOBIN 7.7 g/dL (10.0-15.0)
[2016-12-29 05:28] LABS: ALBUMIN 2.1 gm/dL (3.5-5.0); ANION GAP 9.5 (10.0-19.0); BLOOD UREA NITROGEN 9 mg/dL (6-24); CALCIUM 8.4 mg/dL (8.5-10.5); CHLORIDE 109 mMol/L (96-110); CO2 27 mMol/L (22-32); CREATININE 0.5 mg/dL (0.5-1.1); ESTIMATED GFR (MDRD EQUATION) > 60; PHOSPHORUS 2.1 mg/dL (2.5-4.9); POTASSIUM 3.5 mMol/L (3.7-5.1); SODIUM 142 mMol/L (135-145)
[2016-12-30 05:27] LABS: BASOPHIL % 0.2 %; EOSINOPHIL # 0.1 K/uL (0.0-0.5); EOSINOPHIL % 0.6 %; HEMATOCRIT 24.8 % (33.0-46.0); IMMATURE GRANULOCYTE # 0.1 K/uL (0.0-0.3); IMMATURE GRANULOCYTE % 0.5 %; LYMPHOCYTE # 0.9 K/uL (0.8-4.0); LYMPHOCYTE % 9.7 %; MCH 20.3 pg (27.0-34.0); MCHC 29.4 gm/dL (32.0-36.5); MCV 69.1 fl (83.0-98.0); MONOCYTE # 0.5 K/uL (0.0-1.0); MONOCYTE % 5.7 %; MPV 9.3 fl (9.4-12.4); NEUTROPHIL # (ANC) 7.8 K/uL (1.8-7.8); NEUTROPHIL % 83.3 %; NRBC % 0 /100WBC (0-0.00); PLATELET COUNT 419 K/uL (150-450); RBC 3.59 M/uL (3.50-5.50); RDW-CV 23.9 % (11.9-14.6); WBC 9.4 K/uL (4.0-11.0)
[2016-12-30 05:29] LABS: HEMOGLOBIN 7.3 g/dL (10.0-15.0)
[2016-12-30 05:41] LABS: ANION GAP 10.6 (10.0-19.0); BLOOD UREA NITROGEN 12 mg/dL (6-24); CALCIUM 8.1 mg/dL (8.5-10.5); CHLORIDE 111 mMol/L (96-110); CO2 26 mMol/L (22-32); CREATININE 0.6 mg/dL (0.5-1.1); ESTIMATED GFR (MDRD EQUATION) > 60; MAGNESIUM 1.9 mg/dL (1.8-2.6); PHOSPHORUS 2.8 mg/dL (2.5-4.9); POTASSIUM 3.6 mMol/L (3.7-5.1); SODIUM 144 mMol/L (135-145)
[2016-12-31 04:41] LABS: BASOPHIL % 0.4 %; EOSINOPHIL # 0.1 K/uL (0.0-0.5); EOSINOPHIL % 0.8 %; HEMATOCRIT 24.4 % (33.0-46.0); IMMATURE GRANULOCYTE % 0.5 %; LYMPHOCYTE # 0.8 K/uL (0.8-4.0); LYMPHOCYTE % 9.9 %; MCH 20.3 pg (27.0-34.0); MCHC 29.1 gm/dL (32.0-36.5); MCV 69.7 fl (83.0-98.0); MONOCYTE # 0.4 K/uL (0.0-1.0); MONOCYTE % 4.6 %; MPV 9.2 fl (9.4-12.4); NEUTROPHIL # (ANC) 6.3 K/uL (1.8-7.8); NEUTROPHIL % 83.8 %; NRBC % 0 /100WBC (0-0.00); PLATELET COUNT 352 K/uL (150-450); RDW-CV 24.6 % (11.9-14.6); WBC 7.6 K/uL (4.0-11.0)
[2016-12-31 04:54] LABS: HEMOGLOBIN 7.1 g/dL (10.0-15.0)
[2016-12-31 17:15] LABS: INR - (THERAPEUTIC) 1.16 (0.92-1.07); PROTIME 12.2 SECONDS (9.8-11.4)
[2017-01-01 05:18] LABS: ANION GAP 11.2 (10.0-19.0); BLOOD UREA NITROGEN 8 mg/dL (6-24); CALCIUM 7.9 mg/dL (8.5-10.5); CHLORIDE 108 mMol/L (96-110); CO2 26 mMol/L (22-32); CREATININE 0.4 mg/dL (0.5-1.1); ESTIMATED GFR (MDRD EQUATION) > 60; POTASSIUM 3.2 mMol/L (3.7-5.1); SODIUM 142 mMol/L (135-145)
[2017-01-01 05:35] LABS: BASOPHIL # 0.1 K/uL (0.0-0.2); BASOPHIL % 0.8 %; EOSINOPHIL # 0.1 K/uL (0.0-0.5); EOSINOPHIL % 1.2 %; HEMATOCRIT 24.9 % (33.0-46.0); IMMATURE GRANULOCYTE % 0.5 %; LYMPHOCYTE # 0.7 K/uL (0.8-4.0); MCV 72.2 fl (83.0-98.0); MONOCYTE # 0.4 K/uL (0.0-1.0); MONOCYTE % 6.5 %; MPV 9.1 fl (9.4-12.4); NEUTROPHIL # (ANC) 5.3 K/uL (1.8-7.8); NRBC % 0 /100WBC (0-0.00); RBC 3.45 M/uL (3.50-5.50); RDW-CV 26.3 % (11.9-14.6); WBC 6.6 K/uL (4.0-11.0)
[2017-01-01 05:36] LABS: HEMOGLOBIN 7.6 g/dL (10.0-15.0); MCHC 30.5 gm/dL (32.0-36.5); PLATELET COUNT 280 K/uL (150-450)
[2017-01-02 10:59] LABS: HEMATOCRIT 26.5 % (33.0-46.0); HEMOGLOBIN 8.1 g/dL (10.0-15.0); MCHC 30.6 gm/dL (32.0-36.5); MCV 71.8 fl (83.0-98.0); MPV 9.7 fl (9.4-12.4); PLATELET COUNT 284 K/uL (150-450); RBC 3.69 M/uL (3.50-5.50); RDW-CV 26.1 % (11.9-14.6); WBC 5.5 K/uL (4.0-11.0)
[2017-01-02 11:12] LABS: BLOOD UREA NITROGEN 6 mg/dL (6-24); CALCIUM 8.4 mg/dL (8.5-10.5); CHLORIDE 108 mMol/L (96-110); CO2 25 mMol/L (22-32); CREATININE 0.3 mg/dL (0.5-1.1); ESTIMATED GFR (MDRD EQUATION) > 60; SODIUM 142 mMol/L (135-145)
[2017-01-02 11:43] LABS: ABSOLUTE NEUTROPHIL CT (ANC) 4.5 K/uL (1.8-7.8); BANDED NEUTROPHIL # 0.7 K/uL (0.0-0.1); BANDED NEUTROPHILS % 13 %; LYMPHOCYTE # 0.8 K/uL (0.8-4.0); LYMPHOCYTE % 15 %; MONOCYTE # 0.1 K/uL (0.0-1.0); SEGMENTED NEUTROPHIL # 3.7 K/uL (1.8-7.8); SEGMENTED NEUTROPHIL % 68 %
[2017-01-03 02:43] LABS: ANION GAP 11.5 (10.0-19.0); BLOOD UREA NITROGEN 5 mg/dL (6-24); CALCIUM 8.3 mg/dL (8.5-10.5); CHLORIDE 112 mMol/L (96-110); CO2 25 mMol/L (22-32); CREATININE 0.3 mg/dL (0.5-1.1); ESTIMATED GFR (MDRD EQUATION) > 60; MAGNESIUM 1.8 mg/dL (1.8-2.6); POTASSIUM 3.5 mMol/L (3.7-5.1); SODIUM 145 mMol/L (135-145)
[2017-01-03 06:05] LABS: ANION GAP 11.7 (10.0-19.0); BLOOD UREA NITROGEN 5 mg/dL (6-24); CALCIUM 8.1 mg/dL (8.5-10.5); CHLORIDE 109 mMol/L (96-110); CO2 26 mMol/L (22-32); CREATININE 0.4 mg/dL (0.5-1.1); ESTIMATED GFR (MDRD EQUATION) > 60; POTASSIUM 3.7 mMol/L (3.7-5.1); SODIUM 143 mMol/L (135-145)
[2017-01-03 06:13] LABS: BASOPHIL % 0.4 %; EOSINOPHIL # 0.1 K/uL (0.0-0.5); EOSINOPHIL % 1.5 %; HEMATOCRIT 26.5 % (33.0-46.0); IMMATURE GRANULOCYTE % 0.4 %; LYMPHOCYTE # 0.9 K/uL (0.8-4.0); LYMPHOCYTE % 17.9 %; MCHC 30.2 gm/dL (32.0-36.5); MCV 72.8 fl (83.0-98.0); MONOCYTE # 0.4 K/uL (0.0-1.0); MONOCYTE % 7.9 %; MPV 9.3 fl (9.4-12.4); NEUTROPHIL # (ANC) 3.5 K/uL (1.8-7.8); NEUTROPHIL % 71.9 %; NRBC % 0 /100WBC (0-0.00); PLATELET COUNT 283 K/uL (150-450); RBC 3.64 M/uL (3.50-5.50); RDW-CV 26.5 % (11.9-14.6); WBC 4.8 K/uL (4.0-11.0)
[2017-01-04 07:22] LABS: HEMATOCRIT 27.8 % (33.0-46.0); HEMOGLOBIN 8.4 g/dL (10.0-15.0); MCHC 30.2 gm/dL (32.0-36.5); MCV 72.8 fl (83.0-98.0); MPV 9.4 fl (9.4-12.4); PLATELET COUNT 322 K/uL (150-450); RBC 3.82 M/uL (3.50-5.50)
[2017-01-04 07:35] LABS: CALCIUM 8.4 mg/dL (8.5-10.5); CHLORIDE 109 mMol/L (96-110); CO2 25 mMol/L (22-32); CREATININE 0.4 mg/dL (0.5-1.1); ESTIMATED GFR (MDRD EQUATION) > 60; MAGNESIUM 1.9 mg/dL (1.8-2.6); SODIUM 141 mMol/L (135-145)
[2017-01-04 07:36] LABS: BLOOD UREA NITROGEN 9 mg/dL (6-24)
[2017-01-04 07:56] LABS: ABSOLUTE NEUTROPHIL CT (ANC) 4.5 K/uL (1.8-7.8); BANDED NEUTROPHIL # 0.5 K/uL (0.0-0.1); BANDED NEUTROPHILS % 8 %; LYMPHOCYTE # 1.1 K/uL (0.8-4.0); LYMPHOCYTE % 17 %; MONOCYTE # 0.2 K/uL (0.0-1.0); SEGMENTED NEUTROPHIL % 67 %
[2017-01-04 20:34] LABS: HEMATOCRIT 28.3 % (33.0-46.0); HEMOGLOBIN 8.4 g/dL (10.0-15.0); MCH 21.6 pg (27.0-34.0); MCHC 29.7 gm/dL (32.0-36.5); MCV 72.8 fl (83.0-98.0); MPV 9.4 fl (9.4-12.4); PLATELET COUNT 325 K/uL (150-450); RBC 3.89 M/uL (3.50-5.50); RDW-CV 27.4 % (11.9-14.6); WBC 6.7 K/uL (4.0-11.0)
[2017-01-04 20:41] LABS: INR - (THERAPEUTIC) 1.08 (0.92-1.07); PROTIME 11.3 SECONDS (9.8-11.4)
[2017-01-04 20:57] LABS: ABSOLUTE NEUTROPHIL CT (ANC) 5.2 K/uL (1.8-7.8); BANDED NEUTROPHIL # 1.1 K/uL (0.0-0.1); BANDED NEUTROPHILS % 16 %; LYMPHOCYTE # 1.2 K/uL (0.8-4.0); LYMPHOCYTE % 18 %; MONOCYTE # 0.3 K/uL (0.0-1.0); SEGMENTED NEUTROPHIL # 4.1 K/uL (1.8-7.8); SEGMENTED NEUTROPHIL % 61 %
[2017-01-05 03:08] LABS: ALBUMIN 1.7 gm/dL (3.5-5.0); ALK PHOS 220 IU/L (33-138); ALT 28 IU/L (12-78); ANION GAP 10.1 (10.0-19.0); AST 52 IU/L (10-40); BLOOD UREA NITROGEN 11 mg/dL (6-24); CALCIUM 8.6 mg/dL (8.5-10.5); CHLORIDE 111 mMol/L (96-110); CO2 27 mMol/L (22-32); CREATININE 0.4 mg/dL (0.5-1.1); ESTIMATED GFR (MDRD EQUATION) > 60; POTASSIUM 4.1 mMol/L (3.7-5.1); SODIUM 144 mMol/L (135-145); TOTAL BILIRUBIN 0.5 mg/dL (0.0-1.5); TOTAL PROTEIN 5.5 g/dL (6.0-8.4)
[2017-01-05 03:10] LABS: HEMATOCRIT 28.6 % (33.0-46.0); HEMOGLOBIN 8.6 g/dL (10.0-15.0); MCH 22.1 pg (27.0-34.0); MCHC 30.1 gm/dL (32.0-36.5); MCV 73.3 fl (83.0-98.0); MPV 9.3 fl (9.4-12.4); PLATELET COUNT 321 K/uL (150-450); RDW-CV 27.5 % (11.9-14.6); WBC 5.6 K/uL (4.0-11.0)
[2017-01-05 03:49] LABS: BANDED NEUTROPHIL # 0.8 K/uL (0.0-0.1); BANDED NEUTROPHILS % 14 %; LYMPHOCYTE # 1.2 K/uL (0.8-4.0); LYMPHOCYTE % 22 %; MONOCYTE # 0.2 K/uL (0.0-1.0); SEGMENTED NEUTROPHIL # 3.2 K/uL (1.8-7.8); SEGMENTED NEUTROPHIL % 57 %
[2017-01-06 16:19] LABS: HEMATOCRIT 29.4 % (33.0-46.0); HEMOGLOBIN 8.8 g/dL (10.0-15.0); MCH 21.8 pg (27.0-34.0); MCHC 29.9 gm/dL (32.0-36.5); MPV 9.1 fl (9.4-12.4); PLATELET COUNT 398 K/uL (150-450); RBC 4.03 M/uL (3.50-5.50); WBC 6.2 K/uL (4.0-11.0)
[2017-01-06 16:56] LABS: BANDED NEUTROPHIL # 0.3 K/uL (0.0-0.1); BANDED NEUTROPHILS % 5 %; LYMPHOCYTE # 1.9 K/uL (0.8-4.0); LYMPHOCYTE % 30 %; MONOCYTE # 0.2 K/uL (0.0-1.0); SEGMENTED NEUTROPHIL # 3.7 K/uL (1.8-7.8); SEGMENTED NEUTROPHIL % 59 %
[2017-01-07 04:12] LABS: HEMATOCRIT 26.1 % (33.0-46.0); MCH 21.8 pg (27.0-34.0); MCHC 29.9 gm/dL (32.0-36.5); MCV 72.9 fl (83.0-98.0); MPV 9.2 fl (9.4-12.4); PLATELET COUNT 352 K/uL (150-450); RBC 3.58 M/uL (3.50-5.50); RDW-CV 27.8 % (11.9-14.6)
[2017-01-07 04:19] LABS: HEMOGLOBIN 7.8 g/dL (10.0-15.0)
[2017-01-07 05:37] LABS: ABSOLUTE NEUTROPHIL CT (ANC) 4.6 K/uL (1.8-7.8); LYMPHOCYTE % 17 %; MONOCYTE # 0.4 K/uL (0.0-1.0); SEGMENTED NEUTROPHIL # 4.6 K/uL (1.8-7.8); SEGMENTED NEUTROPHIL % 76 %
[2017-01-07 18:08] LABS: HEMOGLOBIN 8.5 g/dL (10.0-15.0)
[2017-01-08 04:51] LABS: HEMATOCRIT 26.4 % (33.0-46.0)
[2017-01-08 04:53] LABS: HEMOGLOBIN 7.9 g/dL (10.0-15.0)
[2017-01-08 16:59] LABS: HEMATOCRIT 27.6 % (33.0-46.0); HEMOGLOBIN 8.3 g/dL (10.0-15.0)
[2017-01-09 05:25] LABS: HEMATOCRIT 27.2 % (33.0-46.0); HEMOGLOBIN 8.2 g/dL (10.0-15.0)
[2017-01-09] MEDS ORDERED: COLACE100 MG PO (13:16)
[2017-01-09] MEDS ORDERED: FEOSOL325 MG PO (13:17)
[2017-01-09] MEDS ORDERED: TYLENOL325 MG PO ×2 (13:20→13:21)
[2017-01-09] MEDS ORDERED: LOVENOX 8080 MG/0.8 SUB-Q (13:22)
== END 2017-01-09 17:18 | disposition home health service (06) | DRG 374 ==
LOC: GMSU 17:01
PROVIDERS: Hospitalist; Internal Medicine; Internal Medicine Hematology & Oncology; Nurse Practitioner Family; Surgery; ADMIT Internal Medicine
DX: C18.0 Malignant neoplasm of cecum (principal); I81 Portal vein thrombosis; E44.0 Moderate protein-calorie malnutrition; C78.7 Secondary malignant neoplasm of liver and intrahepatic bile duct; C18.2 Malignant neoplasm of ascending colon; K21.9 Gastro-esophageal reflux disease without esophagitis; D62 Acute posthemorrhagic anemia; I10 Essential (primary) hypertension; Z51.5 Encounter for palliative care; Z68.26 Body mass index [BMI] 26.0-26.9, adult; M15.9 Polyosteoarthritis, unspecified; J30.2 Other seasonal allergic rhinitis; H54.7 Unspecified visual loss; K80.20 Calculus of gallbladder without cholecystitis without obstruction; Z86.018 Personal history of other benign neoplasm; E87.6 Hypokalemia; Z79.82 Long term (current) use of aspirin; Z79.899 Other long term (current) drug therapy; F41.9 Anxiety disorder, unspecified; R50.9 Fever, unspecified
CPT/HCPCS: C1788; J0640; J0690; J0696; J1100; J1642; J1644; J1650; J2001; J2250; J2469; J2543; J3010; J3475; J3480; J7030; J7040; J7050; J7060; J7120; J9190; J9206; P9016